=== PATIENT | female | born 1995 | race Caucasian/White ===

== ENCOUNTER 2020-04-13 21:23 | Emergency (ER) | payer MEDICAID ==
[~2020-04-13] VITALS: Ht 160 cm; Wt 51.1 kg
[2020-04-13 21:27] VITALS: BP 97/61
[2020-04-13] MEDS ORDERED: METR-159 PO (21:49)
[2020-04-13] MEDS ORDERED: CefTRIAXone 1000mg IM Kit (w/lidocaine diluent) IM ONE (21:50)
[2020-04-13] MEDS ORDERED: azithromycin 250mg tablet PO ONE (21:50)
[2020-04-13 21:52] LABS: URINE HCG NEGATIVE (NEG)
[2020-04-13 21:53] LABS: CLARITY,URINE CLOUDY (Clear); COLOR,URINE YELLOW (Yellow); GLUCOSE, URINE NEGATIVE (Neg); KETONES,URINE NEGATIVE (Neg); LEUKOCYTE ESTERASE ,URINE TRACE (Neg); NITRITES, URINE NEGATIVE (Neg); OCCULT BLOOD,URINE NEGATIVE (Neg); PH,URINE 6.5 (4.8-8.0); PROTEIN,URINE NEGATIVE (Neg); UROBILINOGEN,URINE 0.2 E.U/dL (0.2-1.0)
[2020-04-13 21:58] LABS: UA COLLECTION TYPE CLN CATCH MIDSTREAM
[2020-04-13 22:00] LABS: BACTERIA,URINE 3+ /HPF (Neg); MUCUS STRANDS MODERATE /LPF (Neg); RBC,URINE NONE SEEN /HPF (0-2); SQUAMOUS EPITHELIAL CELL,UR FEW /LPF (FEW)
== END 2020-04-13 22:00 | disposition home or self-care (01) ==
LOC: ER 21:25
DX: A64 Unspecified sexually transmitted disease (principal); N89.8 Other specified noninflammatory disorders of vagina; Z79.2 Long term (current) use of antibiotics
CPT/HCPCS: 81001; 81025; 87077; 87088; 87186; 96372; 99283; J0696

== ENCOUNTER 2020-05-01 16:17 | Emergency (ER) | payer MEDICAID ==
[~2020-05-01] VITALS: Ht 160 cm; Wt 53.5 kg
[2020-05-01 16:37] VITALS: BP 112/89
[2020-05-01] MEDS ORDERED: HYDR28CR14 TOP (16:57)
[2020-05-01] MEDS ORDERED: PRED10TA23 PO (16:57)
[2020-05-01] MEDS ORDERED: triamcinolone acetonide 40mg/ml inj IM ONE (17:00)
== END 2020-05-01 17:24 | disposition home or self-care (01) ==
LOC: ER 16:17
DX: L23.7 Allergic contact dermatitis due to plants, except food (principal); Z79.899 Other long term (current) drug therapy
CPT/HCPCS: 96372; 99283; J3301

== ENCOUNTER 2020-07-27 16:20 | Emergency (ER) | payer MEDICAID ==
[~2020-07-27] VITALS: Ht 160 cm; Wt 52.6 kg
[~2020-07-27 16:20] MED LIST: HYDR28CR14 TOP
[2020-07-27 16:44] VITALS: BP 123/75
[2020-07-27] MEDS ORDERED: CefTRIAXone 250MG IM Kit w/LIDOcaine IM ONE (17:05)
[2020-07-27] MEDS ORDERED: DOXY100C76 PO (17:05)
== END 2020-07-27 17:39 | disposition home or self-care (01) ==
LOC: ER 16:21
DX: A64 Unspecified sexually transmitted disease (principal); Z79.899 Other long term (current) drug therapy
CPT/HCPCS: 96372; 99283; J0696

== ENCOUNTER 2022-01-16 13:13 | Emergency (ER) | payer MEDICAID ==
[~2022-01-16] VITALS: Ht 160 cm; Wt 52.4 kg
[2022-01-16 13:44] VITALS: BP 121/71
[2022-01-16] MEDS ORDERED: PRE5T PO (14:07)
== END 2022-01-16 15:12 | disposition home or self-care (01) ==
LOC: ER 13:14
DX: L23.7 Allergic contact dermatitis due to plants, except food (principal); Z79.899 Other long term (current) drug therapy
CPT/HCPCS: 99283